=== PATIENT | male | born 1995 | race American Indian/Alaskan Native ===

== ENCOUNTER 2016-06-15 23:00 | Emergency (ER) | payer OTHER ==
[2016-06-15 23:50] VITALS: BP 127/89
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
== END 2016-06-16 03:24 | disposition home or self-care (01) ==
LOC: ED 23:00
DX: M54.9 Dorsalgia, unspecified (principal); V89.2XXA Person injured in unspecified motor-vehicle accident, traffic, initial encounter; Y93.9 Activity, unspecified; Y99.9 Unspecified external cause status; Y92.9 Unspecified place or not applicable
CPT/HCPCS: 99282

== ENCOUNTER 2017-06-19 05:59 | Emergency (ER) | payer OTHER ==
[2017-06-19 10:19] VITALS: BP 101/65
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
== END 2017-06-19 13:20 | disposition home or self-care (01) ==
LOC: ED 05:59
DX: S16.1XXA Strain of muscle, fascia and tendon at neck level, initial encounter (principal); G44.319 Acute post-traumatic headache, not intractable; J45.909 Unspecified asthma, uncomplicated; Z91.018 Allergy to other foods; V89.2XXA Person injured in unspecified motor-vehicle accident, traffic, initial encounter; Y93.89 Activity, other specified; Y92.89 Other specified places as the place of occurrence of the external cause; Y99.8 Other external cause status
CPT/HCPCS: 99282